=== PATIENT | female | born 1995 | race Caucasian/White ===

== ENCOUNTER 2018-08-23 18:24 | Emergency (ER) | payer OTHER ==
[~2018-08-23] VITALS: Ht 175.3 cm; Wt 87.0 kg
[2018-08-23 18:33] VITALS: BP 139/97
[2018-08-23] MEDS ORDERED: ONDANSETRON ODT 4 MG PO ONE (19:00)
[2018-08-23] MEDS ORDERED: KETOROLAC 30 MG/1 ML IM ONE (19:00)
[2018-08-23] MEDS ORDERED: DIPHENHYDRAMINE 25 MG CAPSULE PO ONE (19:00)
[2018-08-23] MEDS ORDERED: ACETAMINOPHEN 325 MG TABLET PO ONE (19:00)
[2018-08-23] MEDS ORDERED: DIPHENHYDRAMINE 25 MG CAPSULE ONE (19:21)
[2018-08-23] MEDS ORDERED: KETOROLAC 30 MG/1 ML ONE (19:22)
[2018-08-23] MEDS ORDERED: ACETAMINOPHEN 325 MG TABLET ONE (19:22)
[2018-08-23] MEDS ORDERED: ONDANSETRON ODT 4 MG ONE (19:22)
== END 2018-08-23 20:23 | disposition home or self-care (01) ==
LOC: ED 19:41
DX: G43.019 Migraine without aura, intractable, without status migrainosus (principal); J00 Acute nasopharyngitis [common cold]
CPT/HCPCS: 96372; 99284; J1885; Q0162; Q0163

== ENCOUNTER 2018-11-23 15:34 | Emergency (ER) | payer OTHER ==
[~2018-11-23] VITALS: Ht 175.3 cm; Wt 85.9 kg
[2018-11-23 15:43] VITALS: BP 143/96
[2018-11-23 16:11] LABS: BASOPHILS # (AUTO) 0.02 x10^3/uL (0-0.1); BASOPHILS % (AUTO) 0 % (0-1); EOSINOPHILS # (AUTO) 0.05 x10^3/uL (0-0.4); EOSINOPHILS % (AUTO) 1 % (1-7); LYMPHOCYTES # (AUTO) 2.59 x10^3/uL (1-3.4); LYMPHOCYTES % (AUTO) 29 % (22-44); MD NO; MEAN CORPUSCULAR HEMOGLOBIN 28.6 pg (27.0-34.8); MEAN CORPUSCULAR HGB CONC 33.3 g/dL (32.4-35.8); MEAN PLATELET VOLUME 8.8 fL (7.4-10.4); MONOCYTES # (AUTO) 0.63 x10^3/uL (0.2-0.8); MONOCYTES % (AUTO) 7 % (2-9); NEUTROPHILS # (AUTO) 5.66 x10^3/uL (1.8-6.8); NEUTROPHILS % (AUTO) 63 % (42-75); PLATELET COUNT 221 x10^3/uL (130-400); RED BLOOD COUNT 5.18 x10^6/uL (3.82-5.3); RED CELL DISTRIBUTION WIDTH 13.6 % (9.6-15.2)
[2018-11-23 16:20] LABS: ALBUMIN 4.2 g/dL (3.4-5.0); ANION GAP 6 mmol/L (5-15); CALCIUM 9.2 mg/dL (8.5-10.1); CHLORIDE 111 mmol/L (98-107)
[2018-11-23 16:24] LABS: ALANINE AMINOTRANSFERASE 26 U/L (12-78); ALKALINE PHOSPHATASE 81 U/L (45-117); BILIRUBIN,TOTAL 0.5 mg/dL (0.2-1.0); TOTAL PROTEIN 8.2 g/dL (6.4-8.2)
--- NOTE | 2018-11-23 19:35 | NUR ---
pt to room from lobby
[2018-11-23 20:09] LABS: HCG UR SG 1.015 (1.003-1.030); MICROSCOPIC NOT IND
[2018-11-23 20:13] LABS: CULTURE INDICATED? NO
== END 2018-11-23 20:49 | disposition home or self-care (01) ==
LOC: ED 20:10
DX: S39.012A Strain of muscle, fascia and tendon of lower back, initial encounter (principal); K64.8 Other hemorrhoids; M46.1 Sacroiliitis, not elsewhere classified; K92.1 Melena; G43.909 Migraine, unspecified, not intractable, without status migrainosus; X58.XXXA Exposure to other specified factors, initial encounter; Y93.89 Activity, other specified; Y92.89 Other specified places as the place of occurrence of the external cause; Y99.8 Other external cause status
CPT/HCPCS: 36415; 80053; 81003; 81025; 83690; 85025; 99284